=== PATIENT | male | born 1965 | race Caucasian/White ===

== ENCOUNTER 2018-11-09 11:03 | Emergency (ER) | payer SELFPAY ==
[2018-11-09 11:16] VITALS: BP 145/91
[2018-11-09] MEDS ORDERED: TRANEXAMIC ACID INJ/PF 1,000 MG/10 ML SDV IV ONE (11:49)
[2018-11-09] MEDS ORDERED: DIPH/PERTUSS(ACELL)/TETANUS VAC/PF 0.5 ML SYR (>=10YO) IM ONE (11:50)
--- NOTE | 2018-11-09 11:51 | ER Document Report ---
HPI - HPI Time Seen by Provider: 11/09/18 11:38 Onset: This morning Onset/Duration: Sudden Quality of pain: No pain Pain Level: Denies Context: Patient reports nontraumatic gingival bleeding that started today while at work. Patient states he does take Plavix and aspirin. Patient denies any other abnormal bleeding or bruising. Associated Symptoms: denies: Fever, Headache Exacerbated by: Denies Relieved by: Denies Similar symptoms previously: No Recently seen / treated by doctor: No - ROS ROS below otherwise negative: Yes Systems Reviewed and Negative: Yes All other systems reviewed and negative - EENT Notes: Bleeding from a broken tooth - GASTROINTESTINAL Gastrointestinal: DENIES: Nausea, Patient vomiting - DERM Skin Color: Normal Skin Problems: Abrasion - Abrasion to left lower leg Past Medical History - General Information source: Patient - Social History Smoking Status: Current Every Day Smoker Smoking Education Provided: Yes Frequency of alcohol use: Occasional Drug Abuse: Marijuana Occupation: [employer] Family History: Reviewed & Not Pertinent - Past Medical History Cardiac Medical History: Reports: Hx Heart Attack, Hx Hypertension Past Surgical History: Reports: Hx Coronary Stent, Hx Orthopedic Surgery - R hand, 0 hardware. Denies: Hx Pacemaker - Immunizations Hx Diphtheria, Pertussis, Tetanus Vaccination: No Vertical Provider Document - CONSTITUTIONAL Agree With Documented VS: Yes Exam Limitations: No Limitations General Appearance: WD/WN, Cachetic - INFECTION CONTROL TRAVEL OUTSIDE OF THE [place] IN LAST 30 DAYS: No - HEENT HEENT: Atraumatic, Normocephalic. negative: Pharyngeal Exudate, Pharyngeal Tenderness, Pharyngeal Erythema, Tympanic Membrane Red, Tympanic Membrane Bulging Mouth Diagram: 1 - Jagged dental fracture with bleeding gingiva - NECK Neck: Normal Inspection, Supple. negative: Lymphadenopathy-Left, Lymphadenopathy-Right - RESPIRATORY Respiratory: Breath Sounds Normal, No Respiratory Distress - CARDIOVASCULAR Cardiovascular: Regular Rate, Regular Rhythm - MUSCULOSKELETAL/EXTREMETIES Musculoskeletal/Extremeties: MAEW - NEURO Level of Consciousness: Awake, Alert, Appropriate Motor/Sensory: No Motor Deficit - DERM Integumentary: Warm, Dry, No Rash Notes: Abrasion to left lower extremity Course - Re-evaluation Re-evalutation: 11/09/18 14:30 TXA applied to gauze and applied topically to the lateral gingiva of tooth #17. 11/09/18 13:09 Patient continues with blood to gauze. Remove gauze and was able to visualize that bleeding is coming from the posterior aspect of the gingiva of tooth #17. Gel form impregnated with TXA and applied topically to the area and held with pressure for [address] Wilson to come and evaluate patient. 11/09/18 13:17 Dr. Ngo to bedside for examination. No active bleeding at this time. Gelfoam remains in place. Will observe patient for any additional rebleeding at this time while we wait for labs to result. 11/09/18 14:31 Patient without any additional bleeding. Diagnostic evaluation essentially benign. Spoke with campus security director who will call the [facility] on Tuesday to help facilitate an appointment. - Vital Signs Vital signs: Temp Pulse Resp BP Pulse Ox 98.4 F 98 20 145/91 H 98 11/09/18 11:15 11/09/18 11:15 11/09/18 11:15 11/09/18 11:15 11/09/18 11:15 - Laboratory Result Diagrams: 11/09/18 13:00 11/09/18 13:00 Laboratory results interpreted by me: 11/09/18 14:31 Labs- Entire Visit 11/09/18 11/09/18 11/09/18 13:00 13:00 13:00 WBC 11.7 H RBC 5.28 Hgb 16.3 Hct 47.4 MCV 90 MCH 31.0 MCHC 34.5 RDW 12.8 Plt Count 431 Seg Neutrophils % 70.7 Lymphocytes % 17.6 Monocytes % 9.0 Eosinophils % 1.7 Basophils % 1.0 Absolute Neutrophils 8.2 Absolute Lymphocytes 2.1 Absolute Monocytes 1.0 Absolute Eosinophils 0.2 Absolute Basophils 0.1 PT 12.9 INR 0.93 APTT 33.9 Sodium 132.9 L Potassium 4.8 Chloride 98 Carbon Dioxide 23 Anion Gap 12 BUN 9 Creatinine 0.61 Est GFR ( Amer) > 60 Est GFR (Non-Af Amer) > 60 Glucose 101 Calcium 9.4 Total Bilirubin 0.7 Direct Bilirubin 0.3 Neonat Total Bilirubin Not Reportable Neonat Direct Bilirubin Not Reportable Neonat Indirect Bili Not Reportable AST 26 ALT 18 L Alkaline Phosphatase 85 Total Protein 7.3 Albumin 4.6 Discharge - Discharge Clinical Impression: Gingival bleeding, Dental caries Condition: Stable Disposition: HOME, SELF-CARE Instructions: Clindamycin ([facility]), Toothache ([facility]) Additional Instructions: Return immediately for any new or worsening symptoms Followup with your primary care provider, call tomorrow to make a followup appointment Follow-up with a dental care provider The campus security director Mike Campos will be attempted to contact the [facility] to help get you an appointment Prescriptions: Clindamycin HCl [Cleocin 300 mg Capsule] 300 mg PO TID #21 capsule Forms: Smoking Cessation Education, Return to Work Referrals: [facility] [Provider Group] - 11/13/18
[2018-11-09 13:32] LABS: ABSOLUTE BASOPHILS # (AUTO) 0.1 10^3/uL (0.0-0.2); ABSOLUTE EOSINOPHILS # (AUTO) 0.2 10^3/uL (0.0-0.6); ABSOLUTE LYMPHOCYTES (AUTO) 2.1 10^3/uL (0.5-4.7); ABSOLUTE NEUT (AUTO) 8.2 10^3/uL (1.7-8.2); EOSINOPHILS % (AUTO) 1.7 % (0-6); HEMATOCRIT 47.4 % (37.9-51.0); HEMOGLOBIN 16.3 g/dL (13.5-17.0); LYMPHOCYTES % (AUTO) 17.6 % (13-45); MEAN CORPUSCULAR HGB CONC 34.5 g/dL (32.0-36.0); MEAN CORPUSCULAR VOLUME 90 fl (80-97); PLATELET COUNT 431 10^3/uL (150-450); RED BLOOD COUNT 5.28 10^6/uL (4.35-5.55); RED CELL DISTRIBUTION WIDTH 12.8 % (11.5-14.0); SEGMENTED NEUTROPHILS % (AUTO) 70.7 % (42-78); TOTAL CELLS COUNTED % (AUTO) 100 %; WHITE BLOOD COUNT 11.7 10^3/uL (4.0-10.5)
[2018-11-09 13:41] LABS: INTERNATIONAL RATION (INR) 0.93; PROTHROMBIN TIME 12.9 SEC (11.4-15.4)
[2018-11-09 13:42] LABS: PARTIAL THROMBOPLASTIN TIME 33.9 SEC (23.5-35.8)
[2018-11-09 13:58] LABS: ALANINE AMINOTRANSFERASE 18 U/L (21-72); ALBUMIN 4.6 g/dL (3.5-5.0); ALKALINE PHOSPHATASE 85 U/L (38-126); ANION GAP 12 (5-19); ASPARTATE AMINO TRANSFERASE 26 U/L (17-59); BILIRUBIN,DIRECT 0.3 mg/dL (0.0-0.4); BILIRUBIN,TOTAL 0.7 mg/dL (0.2-1.3); BLOOD UREA NITROGEN 9 mg/dL (7-20); CALCIUM 9.4 mg/dL (8.4-10.2); CARBON DIOXIDE 23 mmol/L (22-30); CHLORIDE 98 mmol/L (98-107); GLUCOSE 101 mg/dL (75-110); POTASSIUM 4.8 mmol/L (3.6-5.0); SODIUM 132.9 mmol/L (137-145); TOTAL PROTEIN 7.3 g/dL (6.3-8.2)
== END 2018-11-09 14:41 | disposition home or self-care (01) ==
LOC: ER 11:03
DX: K06.8 Other specified disorders of gingiva and edentulous alveolar ridge (principal); K02.9 Dental caries, unspecified; I10 Essential (primary) hypertension; Z23 Encounter for immunization; Z79.01 Long term (current) use of anticoagulants; Z79.82 Long term (current) use of aspirin; F17.200 Nicotine dependence, unspecified, uncomplicated; I25.2 Old myocardial infarction
CPT/HCPCS: 99283; 36415; 85025; 85610; 85730; 80053; 90715; J3490

== ENCOUNTER 2020-05-13 11:11 | Emergency (ER) | payer SELFPAY ==
[2020-05-13] MEDS ORDERED: IPRATROPIUM/ALBUTEROL 0.5-2.5 MG/3 ML AMPUL NEB ONE (13:07)
[2020-05-13] MEDS ORDERED: PREDNISONE 20 MG TABLET PO ONE (13:07)
[2020-05-13] MEDS ORDERED: ALBUTEROL SULFATE 0.083% NEB 2.5 MG/3 ML AMPUL NEB ONE (13:08)
--- NOTE | 2020-05-13 13:50 | RADIOLOGY REPORT (SQ) ---
EXAM DESCRIPTION: CHEST SINGLE VIEW IMAGES COMPLETED DATE/TIME: 05/13/2020 1:41 pm REASON FOR STUDY: bed 35- cough/congestion COMPARISON: 02/13/2009. EXAM PARAMETERS: NUMBER OF VIEWS: One view. TECHNIQUE: Single frontal radiographic view of the chest acquired. RADIATION DOSE: NA LIMITATIONS: None. FINDINGS: LUNGS AND PLEURA: No opacities, masses or pneumothorax. No pleural effusion. MEDIASTINUM AND HILAR STRUCTURES: No masses. Contour normal. HEART AND VASCULAR STRUCTURES: Heart normal in size. Normal vasculature. BONES: No acute findings. HARDWARE: None in the chest. OTHER: No other significant finding. IMPRESSION: NO ACUTE RADIOGRAPHIC FINDING IN THE CHEST. TECHNICAL DOCUMENTATION: JOB ID: [id number] 2010 [employer] [facility]- All Rights Reserved Reading location - IP/workstation name: [email or web address]
--- NOTE | 2020-05-13 13:51 | ER Document Report ---
Entered by AILYN SIDHU SCRIBE 05/13/20 [id number] Acting as scribe for:NATHAN GAITAN MD ED Respiratory Problem - General Chief Complaint: Congestion Stated Complaint: CONGESTION Time Seen by Provider: 05/13/20 12:51 Mode of Arrival: Ambulatory Information source: Patient Notes: This 54 year old male patient presents to the emergency department today with complaints of nasal congestion, wheezing, shortness of a breath, and a non- productive intermittent cough. 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 He also reports that he recently took out dry wall from a 30 year old house and he saw some mold. Patient has a history of asthma and he thinks this is triggering the asthma. He is nauseated but denies vomiting. He has used a friend's inhaler and it helped. TRAVEL OUTSIDE OF THE [place] IN LAST 30 DAYS: No - Related Data Allergies/Adverse Reactions: Penicillins Allergy (Intermediate, Verified 05/13/20 12:49) Hives Home Medications: asa. lisinorpil. clopidrol. metoprolol Past Medical History - General Information source: Patient - Social History Smoking Status: Current Every Day Smoker Cigarette use (# per day): Yes Chew tobacco use (# tins/day): No Frequency of alcohol use: Heavy - 4-5 beers a day Drug Abuse: Marijuana Family History: Reviewed & Not Pertinent Patient has homicidal ideation: No - Past Medical History Cardiac Medical History: Reports: Hx Coronary Artery Disease, Hx Heart Attack, Hx Hypercholesterolemia, Hx Hypertension Pulmonary Medical History: Reports: Hx Asthma Past Surgical History: Reports: Hx Coronary Stent, Hx Orthopedic Surgery - R hand, 0 hardware - Immunizations Hx Diphtheria, Pertussis, Tetanus Vaccination: No Review of Systems - Review of Systems Constitutional: No symptoms reported EENT: See HPI, Nose congestion Cardiovascular: No symptoms reported Respiratory: See HPI, Cough, Short of breath Gastrointestinal: No symptoms reported Genitourinary: No symptoms reported Male Genitourinary: No symptoms reported Musculoskeletal: No symptoms reported Skin: No symptoms reported Hematologic/Lymphatic: No symptoms reported Neurological/Psychological: No symptoms reported -: Yes All other systems reviewed and negative Physical Exam - Vital signs Vitals: Temp Pulse Resp BP Pulse Ox 97.8 F 83 18 151/90 H 97 05/13/20 12:41 05/13/20 12:41 05/13/20 12:41 05/13/20 12:41 05/13/20 12:41 - Notes Notes: Physical Exam: General: Alert, appears well. HEENT: Normocephalic. Atraumatic. PERRL. Extraocular movements intact. Oropharynx clear. Neck: Supple. Non-tender. Respiratory: No respiratory distress. Wheezing bilaterally, Right > Left. Cardiovascular: Regular rate and rhythm. Abdominal: Normal Inspection. Non-tender. No distension. Normal Bowel Sounds. Back: No gross abnormalities. Extremities: Moves all four extremities. Upper extremities: Normal inspection. Normal ROM. Lower extremities: Normal inspection. No edema. Normal ROM. Neurological: Normal cognition. AAOx4. Normal speech. Psychological: Normal affect. Normal Mood. Skin: Warm. Dry. Normal color. Course - Re-evaluation Re-evalutation: 05/13/20 15:12 Patient feels much better after breathing treatments. Auscultation of lungs now show that they are clear. Patient will be discharged with tapering dose of prednisone and an albuterol inhaler. - Vital Signs Vital signs: Temp Pulse Resp BP Pulse Ox 97.8 F 83 18 151/90 H 97 05/13/20 12:41 05/13/20 12:41 05/13/20 12:41 05/13/20 12:41 05/13/20 12:41 - Diagnostic Test Radiology reviewed: Image reviewed, Reports reviewed - Chest x-ray does not show acute cardiopulmonary process. Discharge - Discharge Clinical Impression: Reactive airway disease with wheezing Qualifiers: Asthma severity: mild Asthma persistence: persistent Asthma complication type: uncomplicated Qualified Code(s): J45.30 - Mild persistent asthma, uncomplicated Condition: Stable Disposition: HOME, SELF-CARE Additional Instructions: Start the prednisone as prescribed tomorrow. You had today's dose here in the emergency room. Use the albuterol inhaler 2 puffs every 2-4 hours as needed for wheezing. Try to find better filter masks to use while you are working. Follow-up with a local primary care provider if not improving. RETURN TO THE EMERGENCY ROOM IF ANY NEW OR WORSENING SYMPTOMS. Prescriptions: Prednisone [Deltasone 10 mg Tablet] 10 mg PO ASDIR PRN #21 tablet PRN Reason: Albuterol Sulfate [Proair Hfa Inhalation Aerosol 8.5 gm Mdi] 2 puff IH ASDIR PRN #1 mdi PRN Reason: I personally performed the services described in the documentation, reviewed and edited the documentation which was dictated to the scribe in my presence, and it accurately records my words and actions.
[2020-05-13 15:58] VITALS: BP 164/104
== END 2020-05-13 15:53 | disposition home or self-care (01) ==
LOC: ER 11:11
DX: J45.30 Mild persistent asthma, uncomplicated (principal); R09.81 Nasal congestion; R06.02 Shortness of breath; R05 Cough; F17.210 Nicotine dependence, cigarettes, uncomplicated; E78.00 Pure hypercholesterolemia, unspecified; I10 Essential (primary) hypertension; Z88.0 Allergy status to penicillin; Z79.82 Long term (current) use of aspirin; I25.2 Old myocardial infarction
CPT/HCPCS: 94640 ×2; 99284; 71045; J7512

== ENCOUNTER 2020-05-14 10:35 | Emergency (ER) | payer SELFPAY ==
--- NOTE | 2020-05-14 10:45 | ER Document Report ---
ED Medical Screen (RME) - General Chief Complaint: Weakness Stated Complaint: WEAKNESS,RIGHT HAND Time Seen by Provider: 05/14/20 10:40 Mode of Arrival: Ambulatory Information source: Patient Notes: 54-year-old male presented to ED for complaint of numbness and tingling to his right arm and hand for about a week. He states today he went up to do his work and he has complete weakness in the right arm and hand. He states he is scared that he is having a stroke and came into the emergency room. He was here recently for breathing this discomfort and was treated with breathing treatments and steroids. 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 He is alert oriented respirations regular nonlabored no facial droop no other neurological deficits noted or reported. I have greeted and performed a rapid initial assessment of this patient. A comprehensive ED assessment and evaluation of the patient, analysis of test results and completion of medical decision making process will be conducted by an additional ED providers. TRAVEL OUTSIDE OF THE [place] IN LAST 30 DAYS: No - Related Data Allergies/Adverse Reactions: Penicillins Allergy (Intermediate, Verified 05/14/20 10:40) Hives Past Medical History - Past Medical History Cardiac Medical History: Reports: Hx Coronary Artery Disease, Hx Heart Attack, Hx Hypercholesterolemia, Hx Hypertension Pulmonary Medical History: Reports: Hx Asthma Past Surgical History: Reports: Hx Coronary Stent, Hx Orthopedic Surgery - R hand, 0 hardware. Denies: Hx Pacemaker - Immunizations Hx Diphtheria, Pertussis, Tetanus Vaccination: No Physical Exam - Vital signs Vitals: Temp Pulse Resp BP Pulse Ox 98.7 F 106 H 18 181/101 H 97 05/14/20 10:39 05/14/20 10:39 05/14/20 10:39 05/14/20 10:39 05/14/20 10:39 Course - Vital Signs Vital signs: Temp Pulse Resp BP Pulse Ox 98.7 F 106 H 18 181/101 H 97 05/14/20 10:39 05/14/20 10:39 05/14/20 10:39 05/14/20 10:39 05/14/20 10:39
--- NOTE | 2020-05-14 11:13 | RADIOLOGY REPORT (SQ) ---
EXAM DESCRIPTION: CT HEAD WITHOUT IMAGES COMPLETED DATE/TIME: 05/14/2020 11:02 am REASON FOR STUDY: Numbness weakness right hand and arm COMPARISON: None. TECHNIQUE: Axial images acquired through the brain without intravenous contrast. Images reviewed wi th bone, brain and subdural windows. Additional sagittal and coronal reconstructions were generated. Images stored on PACS. All CT scanners at this facility use dose modulation, iterative reconstruction, and/or weight based d osing when appropriate to reduce radiation dose to as low as reasonably achievable (ALARA). [facility]: Dose Right [facility]: CareDose [facility]: Dose Right [facility]: Teradose 4D [facility]: [employer] RADIATION DOSE: CT Rad equipment meets quality standard of care and radiation dose reduction techniq ues were employed. CTDIvol: 53.2 mGy. DLP: 911 mGy-cm. LIMITATIONS: None. FINDINGS: There is no acute intracranial hemorrhage, vascular territorial infarct, extra-axial fluid collection, mass effect or midline shift. The mann-white matter differentiation is preserved. The caliber of the ventricles is concordant with the degree of sulcation. There is no effacement of the cerebral sulci or basal subarachnoid cisterns. The orbits and globes are intact. The paranasal sinuses are clear. There is no fracture of the calv arium. IMPRESSION: No acute intracranial abnormality. EVIDENCE OF ACUTE STROKE: NO. COMMENT: Quality ID # [id number]: Final reports with documentation of one or more dose reduction techniques (e.g., Automated exposure control, adjustment of the mA and/or kV according to patient size, use of iterative reconstruction technique) TECHNICAL DOCUMENTATION: JOB ID: [id number] 2010 [employer]- All Rights Reserved Reading location - IP/workstation name: [email or web address]
--- NOTE | 2020-05-14 11:19 | RADIOLOGY REPORT (SQ) ---
EXAM DESCRIPTION: CT CERVICAL SPINE WITHOUT IMAGES COMPLETED DATE/TIME: 05/14/2020 11:02 am REASON FOR STUDY: Numbness weakness right hand and arm COMPARISON: None. TECHNIQUE: Axial images acquired through the cervical spine without intravenous contrast. Images re viewed with lung, soft tissue and bone windows. Reconstructed coronal and sagittal MPR images review ed. Images stored on PACS. All CT scanners at this facility use dose modulation, iterative reconstruction, and/or weight based d osing when appropriate to reduce radiation dose to as low as reasonably achievable (ALARA). [facility]: Dose Right [facility]: CareDose [facility]: Dose Right [facility]: Teradose 4D [facility]: [employer] RADIATION DOSE: CT Rad equipment meets quality standard of care and radiation dose reduction techniq ues were employed. CTDIvol: 21.1 mGy. DLP: 400 mGy-cm. LIMITATIONS: None. FINDINGS: ALIGNMENT: There is straightening of the normal lordotic curvature of the cervical spine w ith grade 1 anterolisthesis of C4 relative to C5. There is no craniocervical or atlantoaxial dissoci ation. MINERALIZATION: Normal. VERTEBRAL BODIES: The cervical vertebral body heights are preserved. There is no fracture. DISCS: The C4-C5 intervertebral disc space is narrowed. FACETS, LATERAL MASSES, POSTERIOR ELEMENTS: Osteophytic foraminal stenosis on the left at C3-C4 and C 4-C5 due to a combination of facet joint arthropathy and uncovertebral hypertrophy. There is no acut e fracture or malalignment. HARDWARE: None in the spine. VISUALIZED RIBS: No fractures. LUNG APICES AND SOFT TISSUES: Atherosclerotic calcification of the carotid bifurcations. OTHER: No other finding. IMPRESSION: 1. No acute fracture or malalignment of the cervical spine. 2. 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 TECHNICAL DOCUMENTATION: JOB ID: [id number] Quality ID # [id number]: Final reports with documentation of one or more dose reduction techniques (e.g., Au tomated exposure control, adjustment of the mA and/or kV according to patient size, use of iterative reconstruction technique) 2010 [employer]- All Rights Reserved Reading location - IP/workstation name: [email or web address]
[2020-05-14 11:20] LABS: ABSOLUTE EOSINOPHILS # (AUTO) 0.1 10^3/uL (0.0-0.6); ABSOLUTE MONOCYTES (AUTO) 0.3 10^3/uL (0.1-1.4); ABSOLUTE NEUT (AUTO) 8.6 10^3/uL (1.7-8.2); BASOPHILS % (AUTO) 0.5 % (0-2); EOSINOPHILS % (AUTO) 0.5 % (0-6); HEMATOCRIT 46.6 % (37.9-51.0); HEMOGLOBIN 16.2 g/dL (13.5-17.0); LYMPHOCYTES % (AUTO) 10.2 % (13-45); MEAN CORPUSCULAR HEMOGLOBIN 31.7 pg (27.0-33.4); MEAN CORPUSCULAR HGB CONC 34.9 g/dL (32.0-36.0); MEAN CORPUSCULAR VOLUME 91 fl (80-97); MONOCYTES % (AUTO) 2.6 % (3-13); PLATELET COUNT 445 10^3/uL (150-450); RED BLOOD COUNT 5.12 10^6/uL (4.35-5.55); SEGMENTED NEUTROPHILS % (AUTO) 86.2 % (42-78); TOTAL CELLS COUNTED % (AUTO) 100 %
[2020-05-14 11:40] LABS: ALBUMIN 4.7 g/dL (3.5-5.0); ALKALINE PHOSPHATASE 78 U/L (38-126); ANION GAP 9 (5-19); ASPARTATE AMINO TRANSFERASE 23 U/L (17-59); BILIRUBIN,TOTAL 0.4 mg/dL (0.2-1.3); BLOOD UREA NITROGEN 9 mg/dL (7-20); CALCIUM 9.6 mg/dL (8.4-10.2); CARBON DIOXIDE 25 mmol/L (22-30); CHLORIDE 97 mmol/L (98-107); CREATINE KINASE 139 U/L (55-170); GLUCOSE 130 mg/dL (75-110); POTASSIUM 4.6 mmol/L (3.6-5.0); TOTAL PROTEIN 7.6 g/dL (6.3-8.2)
[2020-05-14 11:42] LABS: APPEARANCE,URINE CLEAR; BILIRUBIN,URINE NEGATIVE (NEGATIVE); COLOR,URINE YELLOW; GLUCOSE, URINE NEGATIVE (NEGATIVE); KETONES,URINE NEGATIVE (NEGATIVE); LEUKOCYTE ESTERASE,URINE NEGATIVE (NEGATIVE); NITRITE,URINE NEGATIVE (NEGATIVE); PROTEIN,URINE NEGATIVE (NEGATIVE); URINE SPECIFIC GRAVITY 1.009; UROBILINOGEN,URINE NEGATIVE mg/dL (<2.0)
--- NOTE | 2020-05-14 12:46 | ER Document Report ---
ED General - General Chief Complaint: Weakness Stated Complaint: WEAKNESS,RIGHT HAND Time Seen by Provider: 05/14/20 10:40 Mode of Arrival: Ambulatory TRAVEL OUTSIDE OF THE [place] IN LAST 30 DAYS: No - HPI Patient complains to provider of: Right hand ring finger pinky finger tingling Notes: Patient presents with 1 week history of tingling sensation paresthesias on his right hand in his fourth and fifth digit. This morning at work patient was having some weakness as well while using a hammer. Patient was seen yesterday in the emergency department shortness of breath. Concerned after talking with someone that this may have been a stroke that happened a week ago. Patient has no focal findings on physical exam at this time no complaints just concerned what happened this morning. - Related Data Allergies/Adverse Reactions: Penicillins Allergy (Intermediate, Verified 05/14/20 10:40) Hives Home Medications: metoprolol, lisinopril, asa, plavix Past Medical History - General Information source: Patient - Social History Smoking Status: Current Every Day Smoker Chew tobacco use (# tins/day): No Frequency of alcohol use: daily 5 beers Drug Abuse: Marijuana Family History: Reviewed & Not Pertinent Patient has homicidal ideation: No - Past Medical History Cardiac Medical History: Reports: Hx Coronary Artery Disease, Hx Heart Attack, Hx Hypercholesterolemia, Hx Hypertension Pulmonary Medical History: Reports: Hx Asthma Past Surgical History: Reports: Hx Coronary Stent, Hx Orthopedic Surgery - R hand, 0 hardware. Denies: Hx Pacemaker - Immunizations Hx Diphtheria, Pertussis, Tetanus Vaccination: No Review of Systems - Review of Systems Constitutional: No symptoms reported EENT: No symptoms reported Cardiovascular: No symptoms reported Respiratory: No symptoms reported Gastrointestinal: No symptoms reported Genitourinary: No symptoms reported Male Genitourinary: No symptoms reported Musculoskeletal: No symptoms reported Skin: No symptoms reported Hematologic/Lymphatic: No symptoms reported Neurological/Psychological: No symptoms reported - Paresthesias fourth and fifth digit right hand systems exacerbated with percussion to medial aspect of right elbow Physical Exam - Vital signs Vitals: Temp Pulse Resp BP Pulse Ox 98.7 F 106 H 18 181/101 H 97 05/14/20 10:39 05/14/20 10:39 05/14/20 10:39 05/14/20 10:39 05/14/20 10:39 - Notes Notes: PHYSICAL EXAMINATION: GENERAL: Well-appearing, well-nourished and in no acute distress. HEAD: Atraumatic, normocephalic. EYES: Pupils equal round, sclera anicteric, conjunctiva are normal. ENT: Surgical mask in place. NECK: Normal range of motion, LUNGS: No respiratory Distress, normal chest rise EXTREMITIES: Normal range of motion, No cyanosis. NEUROLOGICAL: Cranial nerves grossly intact. Normal speech, PSYCH: Normal mood, normal affect. SKIN: Warm, Dry, Course - Re-evaluation Re-evalutation: 05/14/20 12:56 During man no acute distress signs and symptoms of ulnar nerve entrapment, CAT scan head and neck unremarkable extensive work-up unremarkable Patient will be discharged home follow-up with neurosurgery - Vital Signs Vital signs: Temp Pulse Resp BP Pulse Ox 98.7 F 106 H 18 181/101 H 97 05/14/20 10:39 05/14/20 12:15 05/14/20 12:15 05/14/20 12:15 05/14/20 12:15 - Laboratory Result Diagrams: 05/14/20 10:55 05/14/20 10:55 Laboratory results interpreted by me: 05/14/20 05/14/20 10:55 10:55 Lymph % (Auto) 10.2 L Wolfe % (Auto) 2.6 L Absolute Neuts (auto) 8.6 H Seg Neutrophils % 86.2 H Sodium 130.8 L Chloride 97 L Glucose 130 H Discharge - Discharge 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
[2020-05-14 13:36] VITALS: BP 149/90
== END 2020-05-14 13:35 | disposition home or self-care (01) ==
LOC: ER 10:35
DX: G56.21 Lesion of ulnar nerve, right upper limb (principal); R53.1 Weakness; R20.2 Paresthesia of skin; F10.10 Alcohol abuse, uncomplicated; F17.200 Nicotine dependence, unspecified, uncomplicated; Z88.0 Allergy status to penicillin; Z79.899 Other long term (current) drug therapy; Z79.82 Long term (current) use of aspirin; Z79.02 Long term (current) use of antithrombotics/antiplatelets; I25.10 Atherosclerotic heart disease of native coronary artery without angina pectoris; I25.2 Old myocardial infarction; I10 Essential (primary) hypertension; J45.909 Unspecified asthma, uncomplicated
CPT/HCPCS: 36415; 70450; 72125; 80053; 81001; 82550; 83690; 85025; 99285